=== PATIENT | male | born 1950 | race Caucasian/White ===

== ENCOUNTER 2020-09-02 15:41 | Emergency (ER) | payer MEDICARE ==
[~2020-09-02] VITALS: Ht 172.7 cm; Wt 63.5 kg
--- NOTE | 2020-09-02 15:54 | NUR ---
[email or web address], medical screening exam in progress
[2020-09-02] MEDS ORDERED: HYDR-3980 PO (16:28)
[2020-09-02] MEDS ORDERED: HYDROCODONE/APAP 10-325 MG TABLET PO ONE (16:30)
[2020-09-02] MEDS ORDERED: HYDROCODONE/APAP 10-325 MG TABLET ONE (16:39)
--- NOTE | 2020-09-02 16:39 | NUR ---
Patient says that he has a car where he currently lives but this car is not working so he is not driving at this time.
--- NOTE | 2020-09-02 16:40 | NUR ---
Patient was given written and verbal discharge instructions. Patient verbalized understanding & compliance of instructions. Patient is ambulatory with steady gait. Patient refuses offer of halfway placement. Patient was given a list of available shelters in surrounding area.
== END 2020-09-02 16:43 | disposition home or self-care (01) ==
LOC: ER 15:54
DX: M54.5 Low back pain (principal); M46.06 Spinal enthesopathy, lumbar region; Z87.81 Personal history of (healed) traumatic fracture; G89.29 Other chronic pain; Z59.0 Homelessness
CPT/HCPCS: 71045; 72100; A4663